=== PATIENT | male | born 1945 | race Caucasian/White ===

== ENCOUNTER 2016-10-03 09:24 | Outpatient (CLI) | payer MEDICARE, OTHER | END 2016-10-03 09:25 | disposition home or self-care (01) | DX: G47.33 Obstructive sleep apnea (adult) (pediatric) (principal) | CPT/HCPCS: 99214; G0463 ==

== ENCOUNTER 2017-07-25 12:33 | Emergency (ER) | payer MEDICARE, OTHER ==
--- NOTE | 2017-07-25 14:06 | ED Physician Documentation ---
PD HPI URI - Stated complaint Stated Complaint: COUGH,RUNNY NOSE,MUCUS IN EYE - Chief complaint Chief Complaint: Heent - History obtained from History obtained from: Patient - History of Present Illness Timing - onset: Other (4 days of productive cough with mild exertional shortness of breath but no chest pain. No fevers. The cough is worse at night and is productive of green sputum. He is a diabetic.) Review of Systems Constitutional: reports: Fatigue. denies: Fever, Chills Nose: reports: Rhinorrhea / runny nose, Congestion Cardiac: denies: Chest pain / pressure, Palpitations Respiratory: reports: Dyspnea, Cough PD PAST MEDICAL HISTORY - Past Medical History Past Medical History: Yes Cardiovascular: Hypertension, High cholesterol, Coronary artery disease, Murmur Respiratory: Sleep apnea, CPAP use Endocrine/Autoimmune: Type 2 diabetes GI: GERD : None HEENT: Chronic hearing loss Psych: None Musculoskeletal: None Derm: None - Past Surgical History Past Surgical History: Yes HEENT: Tonsil/Adenoidectomy, Other - Present Medications Home Medications: Ambulatory Orders Medication Instructions Recorded Confirmed Aspirin [Aspir 81] 81 mg PO DAILY 08/06/14 07/25/17 Lisinopril [Prinivil] 20 mg PO BID 08/06/14 07/25/17 Atorvastatin [Lipitor] 20 mg PO DAILY 08/07/14 07/25/17 Cholecalciferol (Vitamin D3) 1,000 unit PO DAILY 08/07/14 07/25/17 [Vitamin D3] Cyanocobalamin/Folic Acid [Vitamin 1,000 mg PO DAILY 08/07/14 07/25/17 [id number] Acid Tablet] Nifedipine [Nifedical Xl] 30 mg PO DAILY 08/07/14 07/25/17 Amlodipine Besylate 10 mg PO DAILY 07/25/17 07/25/17 Areds 2 tab ORAL BID 07/25/17 Doxycycline Hyclate 100 mg PO BID #14 tablet 07/25/17 Tamsulosin HCl [Flomax] 0.4 mg PO QPM 07/25/17 07/25/17 - Allergies Allergies/Adverse Reactions: Allergies Allergy/AdvReac Type Severity Reaction Status Date / Time shellfish derived Allergy Rash Verified 07/25/17 12:44 - Social History Does the pt smoke?: No Smoking Status: Never smoker Does the pt drink ETOH?: No Does the pt have substance abuse?: No - Immunizations Immunizations are current?: Yes PD ED PE NORMAL - Vitals Vital signs reviewed: Yes - General General: Alert and oriented X 3, No acute distress - HEENT HEENT: PERRL, EOMI, Other (Mild bilateral conjunctivitis, right otitis media but he has a genetic condition and I am not sure how acute that is.) - Neck Neck: Supple, no meningeal sign, No bony TTP - Cardiac Cardiac: RRR, No murmur - Respiratory Respiratory: No respiratory distress, Clear bilaterally - Neuro Neuro: Alert and oriented X 3, Normal speech Results - Vitals Vitals: Vital Signs - 24 hr 07/25/17 12:41 Temperature 36.5 C Heart Rate 70 Respiratory 18 Rate Blood Pressure 138/67 H O2 Saturation 99 Oxygen O2 Source Room air Departure - Departure Disposition: Home, Self Care Clinical Impression: Bronchitis ROM (right otitis media) Qualifiers: Otitis media type: suppurative Chronicity: unspecified Qualified Code(s): H66.41 - Suppurative otitis media, unspecified, right ear DM II (diabetes mellitus, type II), controlled Qualifiers: Diabetes mellitus complication status: without complication 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 In the interim, return anytime if worse or if new symptoms develop. Your blood pressure was elevated today on check into the emergency department. This does not mean that you have hypertension, it is a common phenomenon to come to the emergency department and have elevated blood pressure. I recommend that you see your primary care physician within the week to have it rechecked when you are feeling better.
[2017-07-25 14:45] VITALS: BP 134/74
== END 2017-07-25 14:15 | disposition home or self-care (01) ==
LOC: ED 12:33
DX: J40 Bronchitis, not specified as acute or chronic (principal); H66.41 Suppurative otitis media, unspecified, right ear; H10.9 Unspecified conjunctivitis; I10 Essential (primary) hypertension; E11.9 Type 2 diabetes mellitus without complications; E78.00 Pure hypercholesterolemia, unspecified; I25.10 Atherosclerotic heart disease of native coronary artery without angina pectoris; G47.30 Sleep apnea, unspecified; K21.9 Gastro-esophageal reflux disease without esophagitis; Z79.82 Long term (current) use of aspirin
CPT/HCPCS: 99283

== ENCOUNTER 2018-07-17 10:14 | Outpatient (CLI) | payer MEDICARE, OTHER ==
--- NOTE | 2018-07-17 15:53 | XRAY Report ---
Reason: CHEST PAIN Procedure Date: 07/17/2018 Accession Number: [id number] / [id number] Procedure: XRN - Chest 2 View X-Ray CPT Code: 27185 FULL RESULT: EXAM: CHEST RADIOGRAPHY EXAM DATE: 07/17/2018 11:25 AM. CLINICAL HISTORY: CHEST PAIN. COMPARISON: None. TECHNIQUE: 2 views. FINDINGS: Lungs/Pleura: No focal opacities evident. No pleural effusion. No pneumothorax. Normal volumes. Mediastinum: Heart and mediastinal contours are unremarkable. IMPRESSION: No evidence of acute thoracic process RADIA
== END 2018-07-17 10:15 | disposition home or self-care (01) ==
LOC: DI.N 10:14
PROVIDERS: ATTEND Family Medicine
DX: R07.9 Chest pain, unspecified (principal)
CPT/HCPCS: 71046

== ENCOUNTER 2019-03-14 08:00 | Outpatient (CLI) | payer MEDICARE, OTHER ==
[2019-03-14 18:55] LABS: BASOPHILS % (AUTO) 0.3 %; EOSINOPHILS % (AUTO) 0.3 %; HGB - HEMOGLOBIN 12.9 g/dL (14.0-18.0); LYMPHOCYTES # (AUTO) 1.1 10^3/uL (1.5-3.5); LYMPHOCYTES % (AUTO) 17.9 %; MEAN CORPUSCULAR HEMOGLOBIN 33.4 pg (27.0-31.0); MEAN CORPUSCULAR HGB CONC 33.7 g/dL (32.0-36.0); MEAN CORPUSCULAR VOLUME 99.2 fL (80.0-94.0); MONOCYTES # (AUTO) 0.6 10^3/uL (0.0-1.0); MONOCYTES % (AUTO) 10.5 %; NEUTROPHILS # (AUTO) 4.3 10^3/uL (1.5-6.6); PLT - PLATELET COUNT 178 10^3/uL (130-450); RED BLOOD COUNT 3.86 10^6/uL (4.70-6.10); RED CELL DISTRIBUTION WIDTH 13.1 % (12.0-15.0); WHITE BLOOD COUNT 6.1 x10^3/uL (4.8-10.8)
[2019-03-14 19:14] LABS: ALBUMIN 4.7 g/dL (3.2-5.5); ALKALINE PHOSPHATASE 80 IU/L (42-121); ALT ALANINE AMINOTRANSFERASE 31 IU/L (10-60); AST ASPARTATE AMINOTRANSFERASE 21 IU/L (10-42); BILIRUBIN,DIRECT < 0.1 mg/dL (0.1-0.5); BILIRUBIN,TOTAL 0.7 mg/dL (0.2-1.0); TOTAL PROTEIN 7.1 g/dL (6.7-8.2)
== END 2019-03-14 23:59 | disposition home or self-care (01) ==
LOC: LAB.WCP 08:00
PROVIDERS: ATTEND Physician Assistant Medical
DX: B35.1 Tinea unguium (principal); Z79.899 Other long term (current) drug therapy
CPT/HCPCS: 36415; 80076; 85025

== ENCOUNTER 2019-04-24 11:38 | Outpatient (CLI) | payer MEDICARE, OTHER ==
[2019-04-24 19:03] LABS: ALBUMIN 4.8 g/dL (3.2-5.5); BILIRUBIN,DIRECT 0.1 mg/dL (0.1-0.5); BILIRUBIN,TOTAL 0.5 mg/dL (0.2-1.0); TOTAL PROTEIN 7.7 g/dL (6.7-8.2)
== END 2019-04-24 23:59 ==
LOC: LAB.WCP 11:38
PROVIDERS: ATTEND Physician Assistant Medical
DX: B35.1 Tinea unguium (principal); Z79.899 Other long term (current) drug therapy
CPT/HCPCS: 36415; 80076

== ENCOUNTER → 2019-06-21 | Outpatient (CLI) | payer MEDICARE, OTHER | LOC: LAB.WCP 08:00 | PROVIDERS: ATTEND Urology | DX: Z12.5 Encounter for screening for malignant neoplasm of prostate (principal) | CPT/HCPCS: 36415; G0103; 84153 ==

== ENCOUNTER 2019-08-06 15:30 | Outpatient (CLI) | payer MEDICARE, OTHER ==
[2019-08-06 17:25] VITALS: BP 140/56
--- NOTE | 2019-08-06 17:25 | SLEEP CARE CONSULTATION ---
Information from patient questionnaire entered by Rosemarie Parr. I have reviewed and concur with the information entered by Rosemarie Parr. This document represents the service I personally performed and the decisions made by me, Bethanie Retana, RN, MSN, GRAIN I FARMWORKER. History of Present Illness Previous diagnosis: Moderate, Obstructive Sleep Apnea-Hypopnea Syndrome AHI: 25.4 Reason for follow up: annual Equipment type: CPAP Equipment obtained from: [facility] (having difficulty getting supplies) Mask style: Nasal Mask brand: Respironics Backup mask available: No (keep current mask when replaced) Last cushion change: a few months ago Prior sleep studies: Yes Year and Where: [facility] CPAP Compliance Data - Data Reviewed with Patient Average duration of nightly device use: 8h 48m Compliance rate %: 96.7 Current pressure setting (cmH2O): 10-15 Humidity setting: varied Average residual AHI: 2 Average large leak: 1m 54s Subjective Missed days of use due to: reports: other (use of travel CPAP on boat) Patient concerns: reports: condensation in mask/hose (rare ), nasal congestion (seasonal - uses the humidity to reduce symptoms - wants to use a full face mask when unable to use nasal mask), dry mouth, nose, throat (dry mouth- several times a week. ). denies: aerophagia, mask discomfort, air blowing in eyes, mask leak noise, epistaxis Observed to snore while using device: No Current pressure setting perceived as: comfortable On therapy, patient: reports: sleeping better (cannot sleep without CPAP ), awakening more refreshed, being more awake and alert during the day, more rested overall. denies: drowsiness while driving Initial [place] Sleepiness Scale score: 7 Current [place] Sleepiness Scale score: 5 Allergies and Home Medications Known drug allergies: No Home medication list reviewed: Yes (see changes ) Allergy and home medication list: tamsulosin 0.4 mg HS nifedipine 30mg daily lisinopril 20mg bid Vitamin B12 / folic acid daily Vitamin D3 daily atorvastatin 20mg daily aspirin 81mg daily Areds 2 bid amlodipine 10mg daily metformin 500mg TID furosemide 20mg daily Review of Systems Review of systems same as previous: No (BAHA hearing appliance to right occipital scalp. ) Physical Exam Blood Pressure: 140/56 Cuff size: long Heart Rate: 87 O2 Saturation: 98 Height: 6 ft Weight: 198 lb 12.8 oz Body Mass Index: 26.9 BMI Classification: Overweight Impression and Plan 1. Obstructive Sleep Apnea-Hypopnea Syndrome, moderate, with good treatment compliance and good apnea control. On CPAP therapy, the patient has better sleep quality and is more rested overall. For patient supply concerns. Patient was notified that another DME can be used. I will have my trauma coordinator inform of DME options. A DWO prescription will then be made. Patient advised to contact this office if further supply problems. Since his CPAP is over 5 years old and of reasonable use, I will also update his CPAP. Compliance guidelines discussed for follow up. He travels frequently and wants to ensure it does not stop functioning as he does not sleep well without CPAP. At the time of transfer, he is advised to bring his mask as he wants to continue its use. He is also considering getting a full face mask to use when he congested with allergies. I discussed how he can alternate style of mask when due for replacement. For dry mouth, just adjust humidity higher setting. I informed him that the new CPAPs have a better humidity system. He is planning on losing 5-10 pounds. His current pressure range should accommodate this loss. Symptoms to reports discussed for CPAP pressure adjustment. Patient's apnea severity and rationale for treatment to reduce apnea, improve sleep quality and reduce cardiovascular and cerebrovascular events was reviewed. I also reviewed the benefit of consistent device use of CPAP for hypertension, diabetes. * Continue CPAP pressure at 10-15 cmH2O * Update CPAP - Dreamstation preferred by patient * Full face mask fitting to use when allergic rhinitis * Notify me if snoring with mask or feeling that the pressure is too much or too little * Attempt to lose some weight * Call this office if any problems using CPAP * Return for follow up in 1 month after new device , or sooner if concerns arise Time Spent with Patient (minutes): 35 I spent 100% of this visit face to face with the patient with greater than 50% of this was spent time counseling the patient and coordination of care.
== END 2019-08-06 15:31 ==
LOC: SC 15:30
PROVIDERS: ATTEND Nurse Practitioner Family
DX: G47.33 Obstructive sleep apnea (adult) (pediatric) (principal)
CPT/HCPCS: 99214; G0463; 99212

== ENCOUNTER 2019-10-17 13:45 | Outpatient (CLI) | payer MEDICARE, OTHER ==
--- NOTE | 2019-10-17 13:26 | SLEEP CARE CONSULTATION ---
Information from patient questionnaire entered by Rosemarie Parr. I have reviewed and concur with the information entered by Rosemarie Parr. This document represents the service I personally performed and the decisions made by me, Bethanie Retana, RN, MSN, ROVING DEPARTMENT END FINDER. History of Present Illness Service Date and Time: 10/17/2019 1300 Previous diagnosis: Moderate, Obstructive Sleep Apnea-Hypopnea Syndrome AHI: 25.4 Reason for follow up: first compliance after device update Equipment type: CPAP Equipment obtained from: [employer] (getting supplies as needed) Mask style: Nasal pillows Backup mask available: No (keep current mask when replaced) Last cushion change: a few days CPAP Compliance Data - Data Reviewed with Patient Average duration of nightly device use: 7h 16m Compliance rate %: 100 Current pressure setting (cmH2O): 10-15 Average residual AHI: 1.5 Average large leak: 8m 6s Subjective Patient concerns: reports: nasal congestion (reduced with CPAP), dry mouth, nose, throat (dry mouth mild-), other (notices mask leaks on machine). denies: aerophagia, mask discomfort, air blowing in eyes, mask leak noise, condensation in mask/hose, epistaxis Observed to snore while using device: No Current pressure setting perceived as: comfortable On therapy, patient: reports: sleeping better, awakening more refreshed, being more awake and alert during the day, more rested overall. denies: drowsiness while driving Initial [place] Sleepiness Scale score: 7 Physical Exam Height: 6 ft Impression and Plan 1. Obstructive Sleep Apnea-Hypopnea Syndrome, moderate , with good treatment compliance and good apnea control with his updated CPAP. On CPAP therapy, the patient has better sleep quality and is more rested overall. To reduce mask leaks when he sleeps on his side, he is advised to consider a CPAP pillow with rationale explained. CPAP pillows can be found online. To reduce mild oral dryness, he is advised of oral rinses and xylimelts to reduce dryness symptoms. He is advised to contact his dentist of best product to use for him to reduce dental carries associated with oral dryness. He is currently living insolation on his [place] using the CPAP battery to reduce exposure to the Yao Virus. The humidifier cannot be used with the CPAP battery as it draws too much power. Otherwise, he could increase the humidity for his oral dryness. Patient's apnea severity and rationale for treatment to reduce apnea, improve sleep quality and reduce cardiovascular and cerebrovascular events was reviewed. * Continue autoCPAP pressure at 10-15 cmH2O * Consider CPAP pillow * Contact dentist re oral dryness products * Notify me if snoring with mask or feeling that the pressure is too much or too little * Call this office if any problems using CPAP * Return for follow up in 1 year , or sooner if concerns arise Counseling Topics: Spare mask Visit Type: Telehealth Phone (to minimize risk of COVID 19 risk, the patient has agreed to a telehealth visit and billing of his insurance.) Patient agrees and consents to this telehealth visit type: Yes Time Spent with Patient (minutes): 10 Provider Statement: I spent 100% of the Telehealth Phone Call with the patient with greater than 50% spent counseling the patient and coordination of care.
== END 2019-10-17 13:46 | disposition home or self-care (01) ==
LOC: SC 13:45
PROVIDERS: ATTEND Nurse Practitioner Family
DX: G47.33 Obstructive sleep apnea (adult) (pediatric) (principal)

== ENCOUNTER 2020-10-21 11:15 | Outpatient (CLI) | payer MEDICARE, OTHER ==
--- NOTE | 2020-10-21 11:55 | SLEEP CARE CONSULTATION ---
Information from patient questionnaire entered by Christa Plasencia. I have reviewed and concur with the information entered by Christa Plasencia. This document represents the service I personally performed and the decisions made by , Sosa Hoover ARNP. History of Present Illness Service Date and Time: 10/21/2020 1115 Previous diagnosis: Moderate, Obstructive Sleep Apnea-Hypopnea Syndrome AHI: 25.4 (in 2008) Reason for follow up: annual (Last seen 10/2019) Equipment type: CPAP Equipment obtained from: [facility] (getting supplies as needed) Mask style: Nasal (over the nose) Backup mask available: Yes (old mask) Last cushion change: not sure, changes when leaks Prior sleep studies: Yes Year and Where: [address] [place] [address] Sleep HPI additional information: NATHAN ESPARZA was diagnosed to have moderate, AHI 25.4, obstructive sleep apnea-hypopnea syndrome and returned today for CPAP therapy annual follow-up. CPAP Compliance Data - Data Reviewed with Patient Average duration of nightly device use: 6 hr 29 min Compliance rate %: 76.7 (150 days) Current pressure setting (cmH2O): 10-15 Humidity settin Heated hose settin Average residual AHI: 2.3 Average large leak: 4 sec Subjective Missed days of use due to: reports: other (uses old machine on his boat) Patient concerns: reports: dry mouth, nose, throat (a little daily, drinks water to wet mouth). denies: aerophagia, mask discomfort, air blowing in eyes, mask leak noise, condensation in mask/hose, nasal congestion, epistaxis, other Observed to snore while using device: No Current pressure setting perceived as: comfortable On therapy, patient: reports: sleeping better, awakening more refreshed, being more awake and alert during the day, more rested overall. denies: drowsiness while driving Initial [place] Sleepiness Scale score: 7 (in 2010) Current [place] Sleepiness Scale score: 6 Allergies and Home Medications Home medication list reviewed: Yes (no new meds) Review of Systems Review of systems same as previous: Yes (no changes) Physical Exam Heart Rate: 70 O2 Saturation: 99 Height: 6 ft Weight: 193 lb Body Mass Index: 26.2 BMI Classification: Overweight Impression and Plan 1. Obstructive Sleep Apnea-Hypopnea Syndrome, moderate, with good treatment compliance and good apnea control. On CPAP therapy, the patient has better sleep quality and is more rested overall. He has significant improvement of his sleep apnea and is satisfied with his treatment. He has an old machine that he uses when on his boat that uses a credit card style data disc which we cannot read. He does have daily mouth dryness but he states he drinks a little water and he is fine. Oral dryness can be reduced by adjusting humidity setting higher or heated hose lower or by adjusting both settings. He voiced understanding. Patient's apnea severity and rationale for treatment to reduce apnea, improve sleep quality and reduce cardiovascular and cerebrovascular events was reviewed. I also reviewed the benefit of consistent device use of CPAP for hypertension and diabetes. * Continue autoCPAP pressure at 10-15 cmH2O * Notify me if snoring with mask or feeling that the pressure is too much or too little * Attempt to lose weight * Call this office if any problems using CPAP * Return for follow up in 1 year, or sooner if concerns arise Counseling Topics: Spare mask, Weight loss health impact Visit Type: In Office Time Spent with Patient (minutes): 17 Provider Statement: I spent 100% of the Face to Face Visit with the patient with greater than 50% spent counseling the patient and coordination of care.
== END 2020-10-21 11:16 | disposition home or self-care (01) ==
LOC: SC 11:15
PROVIDERS: ATTEND Nurse Practitioner Family
DX: G47.33 Obstructive sleep apnea (adult) (pediatric) (principal); E66.3 Overweight; Z68.26 Body mass index [BMI] 26.0-26.9, adult
CPT/HCPCS: 99212; G0463

== ENCOUNTER 2021-05-21 10:05 | Outpatient (CLI) | payer MEDICARE, OTHER ==
[2021-05-21 10:40] VITALS: BP 168/78
--- NOTE | 2021-05-21 10:40 | SLEEP CARE CONSULTATION ---
Information from patient questionnaire entered by Evans Go MA. I have reviewed and concur with the information entered by Evans Go MA. This document represents the service I personally performed and the decisions made by , Sosa Hoover ARNP. History of Present Illness Service Date and Time: 05/21/2021 1005 Previous diagnosis: Moderate, Obstructive Sleep Apnea-Hypopnea Syndrome AHI: 25.4 (in 2008) Reason for follow up: other (7 MONTH F/U TRANSFER DME) Equipment type: CPAP Equipment obtained from: [facility] (getting supplies as needed; not longer doing supplies) Mask style: Nasal (over the nose) Backup mask available: Yes (old mask) Prior sleep studies: Yes Year and Where: [address] [place] [address] Sleep HPI additional information: NATHAN ESPARZA was diagnosed to have moderate, AHI 25.4, obstructive sleep apnea-hypopnea syndrome and returned today for CPAP therapy 7 month follow-up. Sleep Study - Results Prior sleep studies: Yes Year and Where: [address] [place] [address] Sleep CPAP Compliance Data - Data Reviewed with Patient Average duration of nightly device use: 4 HOURS 1 MINUTE Compliance rate %: 57.8 Current pressure setting (cmH2O): 10 -15 Humidity settin Heated hose settin Average residual AHI: 1.6 Average large leak: 7 secs Compliance data discussion: He uses an older device when on his boat. Subjective Missed days of use due to: reports: other (uses other device when on his boat) Patient concerns: denies: aerophagia, mask discomfort, air blowing in eyes, mask leak noise, condensation in mask/hose, nasal congestion, dry mouth, nose, throat, epistaxis, other Observed to snore while using device: No Current pressure setting perceived as: comfortable On therapy, patient: reports: sleeping better, awakening more refreshed, being more awake and alert during the day, more rested overall. denies: drowsiness while driving Initial [place] Sleepiness Scale score: 7 (in 2010) Current [place] Sleepiness Scale score: 7 (in 2020) Allergies and Home Medications Home medication list reviewed: Yes (no changes) Review of Systems Review of systems same as previous: Yes (no changes) Physical Exam Vital signs obtained and entered by: Diomedes Go CMA AAULISES Blood Pressure: 168/78 (left) Cuff size: wrist Heart Rate: 77 O2 Saturation: 98 (with mask) Height: 6 ft Weight: 185 lb (with winter clothes and boots) Body Mass Index: 25.0 BMI Classification: Overweight Impression and Plan 1. Obstructive Sleep Apnea-Hypopnea Syndrome, moderate, with good treatment compliance and good apnea control. On CPAP therapy, the patient has better sleep quality and is more rested overall. Patient uses an old device that uses a credit card memory card that we are unable to read. He uses his CPAP every night. He asked to have the ramp time reduced or turned off on his device because he gets some air hunger when it starts lower and his ramp time is at 30 minutes. He is also concerted that his DME company has sold off the CPAP supply part of their business and he would like to change to a different DME for his supplies. For patient supply concerns another DME can be used. I will have my grant coordinator inform of DME options. A DWO prescription will then be made. Patient advised to contact this office if further supply problems. Patient's apnea severity and rationale for treatment to reduce apnea, improve sleep quality and reduce cardiovascular and cerebrovascular events was reviewed. I also reviewed the benefit of consistent device use of CPAP for hypertension and diabetes. * Continue auto CPAP pressure at 10-15 cmH2O * Transfer DME * Turn off ramp time * Notify me if snoring with mask or feeling that the pressure is too much or too little * Attempt to lose weight * Call this office if any problems using CPAP * Return for follow up in 1 year, or sooner if concerns arise Counseling Topics: Spare mask, Weight loss health impact Visit Type: In Office Time Spent with Patient (minutes): 21 Provider Statement: I spent 100% of the Face to Face Visit with the patient with greater than 50% spent counseling the patient and coordination of care.
== END 2021-05-21 10:06 | disposition home or self-care (01) ==
LOC: SC 10:05
PROVIDERS: ATTEND Nurse Practitioner Family
DX: G47.33 Obstructive sleep apnea (adult) (pediatric) (principal)
CPT/HCPCS: 99213; G0463; 99212

== ENCOUNTER 2022-05-31 09:54 | Outpatient (CLI) | payer MEDICARE, OTHER ==
[2022-05-31 10:39] VITALS: BP 122/58
--- NOTE | 2022-05-31 10:39 | SLEEP CARE CONSULTATION ---
Information from patient questionnaire entered by Jey Duenas. I have reviewed and concur with the information entered by Jey Duenas. This document represents the service I personally performed and the decisions made by me, Sosa Hoover ARNP. History of Present Illness Service Date and Time: 05/31/2022 0954 Previous diagnosis: Moderate, Obstructive Sleep Apnea-Hypopnea Syndrome AHI: 25.4 (in 2008) Reason for follow up: annual (LAST SEEN 05/2021) Equipment type: CPAP (DREAMSTATION 2) Equipment obtained from: Other ([employer]; getting supplies as needed) Mask style: Nasal (over the nose) Backup mask available: No (will keep old mask when replaced) Last cushion change: last month Prior sleep studies: Yes Year and Where: [address] [place] [address] Sleep HPI additional information: NATHAN ESPARZA was diagnosed to have moderate, AHI 25.4, obstructive sleep apnea-hypopnea syndrome and returned today for CPAP therapy annual follow-up. Sleep Study - Results Prior sleep studies: Yes Year and Where: [address] [place] [address] Sleep CPAP Compliance Data - Data Reviewed with Patient Average duration of nightly device use: 7 hours 30 minutes Compliance rate %: 77.2 (141/180 days used) Current pressure setting (cmH2O): 10-15 Average residual AHI: 1.8 Central apnea: 0.1 Obstructive apnea: 1 Compliance data discussion: He uses his CPAP every night and will use an older machine [place]. He uses it for naps too. Subjective Missed days of use due to: reports: other (all gaps in use he is using his older CPAP on his boat) Patient concerns: denies: aerophagia, mask discomfort, air blowing in eyes, mask leak noise, condensation in mask/hose, nasal congestion, dry mouth, nose, throat, epistaxis Observed to snore while using device: No Current pressure setting perceived as: comfortable On therapy, patient: reports: sleeping better, awakening more refreshed, being more awake and alert during the day, more rested overall. denies: drowsiness while driving Initial [place] Sleepiness Scale score: 7 (in 2010) Current [place] Sleepiness Scale score: 4 (05/31/22) Allergies and Home Medications Drug allergies reviewed: Yes (shellfish derived) Home medication list reviewed: Yes Review of Systems Review of systems same as previous: Yes (no changes) Physical Exam Vital signs obtained and entered by: JEY Herrera MA Blood Pressure: 122/58 (LEFT ARM) Cuff size: regular Heart Rate: 68 O2 Saturation: 99 Height: 6 ft Weight: 191 lb 9.6 oz Body Mass Index: 25.9 BMI Classification: Overweight Impression and Plan 1. Obstructive Sleep Apnea-Hypopnea Syndrome, moderate, with good treatment compliance and good apnea control. On CPAP therapy, the patient has better sleep quality and is more rested overall. Patient uses a very old machine when he is on his boat periodically through the year. We are unable to obtain information from the card. He rates his compliance with his main machine at home. Patient has significant improvement of their sleep apnea and are satisfied with current CPAP therapy. Patient denies problems with oral dryness, nasal congestion, epistaxis, skin irritation or aerophagia. Patient's apnea severity and rationale for treatment to reduce apnea, improve sleep quality and reduce cardiovascular and cerebrovascular events was reviewed. I also reviewed the benefit of consistent device use of CPAP for hypertension and diabetes. * Continue auto CPAP pressure at 10-15 cmH2O * Update supplies * Notify me if snoring with mask or feeling that the pressure is too much or too little * Maintain a healthy weight * Call this office if any problems using CPAP * Return for follow up in 1 year, or sooner if concerns arise Counseling Topics: Spare mask, Weight control Visit Type: In Office Time Spent with Patient (minutes): 20 Provider Statement: I spent 100% of the Face to Face Visit with the patient with greater than 50% spent counseling the patient and coordination of care.
== END 2022-05-31 09:55 | disposition home or self-care (01) ==
LOC: SC 09:54
PROVIDERS: ATTEND Nurse Practitioner Family
DX: G47.33 Obstructive sleep apnea (adult) (pediatric) (principal)
CPT/HCPCS: 99213; G0463; 99212

== ENCOUNTER 2023-03-10 07:30 | Outpatient (CLI) | payer MEDICARE, OTHER ==
[2023-03-10 13:00] LABS: BASOPHILS % (AUTO) 0.3 %; EOSINOPHILS # (AUTO) 0.1 10^3/uL (0.0-0.7); EOSINOPHILS % (AUTO) 0.8 %; HGB - HEMOGLOBIN 12.4 g/dL (14.0-18.0); LYMPHOCYTES # (AUTO) 1.4 10^3/uL (1.5-3.5); LYMPHOCYTES % (AUTO) 20.7 %; MEAN CORPUSCULAR HEMOGLOBIN 34.3 pg (27.0-31.0); MEAN CORPUSCULAR HGB CONC 33.5 g/dL (32.0-36.0); MEAN CORPUSCULAR VOLUME 102.2 fL (80.0-94.0); MEAN PLATELET VOLUME 11.1 fL (7.4-11.4); MONOCYTES # (AUTO) 0.6 10^3/uL (0.0-1.0); MONOCYTES % (AUTO) 8.9 %; NEUTROPHILS # (AUTO) 4.5 10^3/uL (1.5-6.6); NEUTROPHILS % (AUTO) 67.9 %; PLT - PLATELET COUNT 178 10^3/uL (130-450); RED BLOOD COUNT 3.62 10^6/uL (4.70-6.10); RED CELL DISTRIBUTION WIDTH 13.1 % (12.0-15.0); WHITE BLOOD COUNT 6.6 x10^3/uL (4.8-10.8)
[2023-03-10 13:04] LABS: ESTIMATED AVERAGE GLUCOSE 120 mg/dL (70-100); HEMOGLOBIN A1c% 5.8 % (4.27-6.07)
[2023-03-10 13:17] LABS: % IRON SATURATION 35 % (20-50); ALBUMIN 4.6 g/dL (3.2-5.5); ALBUMIN/GLOBULIN RATIO 2.4 (1.0-2.2); ALKALINE PHOSPHATASE 71 IU/L (42-121); ALT ALANINE AMINOTRANSFERASE 20 IU/L (10-60); AST ASPARTATE AMINOTRANSFERASE 13 IU/L (10-42); BILIRUBIN,TOTAL 0.6 mg/dL (0.2-1.0); BUN - BLOOD UREA NITROGEN 19 mg/dL (6-20); CALCIUM 9.7 mg/dL (8.5-10.3); CARBON DIOXIDE - CO2 29 mmol/L (21-32); CHLORIDE 106 mmol/L (101-111); CHOL/HDL RATIO 2.1 (<5.0); CHOLESTEROL 95 mg/dL; CREATININE 0.8 mg/dL (0.6-1.3); GFR - MDRD 93 (>89); GLUCOSE 154 mg/dL (74-104); HDL CHOLESTEROL 46 mg/dL; IRON 112 ug/dL (50-212); LDL CHOLESTEROL,CALCULATED 26 mg/dL; LDL/HDL RATIO 0.6 (<3.6); POTASSIUM 4.5 mmol/L (3.5-4.5); SODIUM 141 mmol/L (135-145); TOTAL IRON BINDING CAPACITY 318 ug/dL (250-450); TOTAL PROTEIN 6.5 g/dL (6.4-8.9); TRANSFERRIN 227 mg/dL (203-362); TRIGLYCERIDES 113 mg/dL (48-352); VLDL CHOLESTEROL 23 mg/dL
[2023-03-10 13:32] LABS: CREATININE,URINE 138.5 mg/dL; MICROALBUM/CREATININE RATIO,UR 290.3 ug/mg (<30.0); MICROALBUMIN,URINE 40.2 mg/dL
[2023-03-10 13:38] LABS: FERRITIN 201.3 ng/mL (23.9-336.2)
== END 2023-03-10 07:31 | disposition home or self-care (01) ==
LOC: LAB.N 07:30
PROVIDERS: ATTEND Physician Assistant
DX: E11.9 Type 2 diabetes mellitus without complications (principal); E78.00 Pure hypercholesterolemia, unspecified; D51.9 Vitamin B12 deficiency anemia, unspecified
CPT/HCPCS: 36415; 80053; 80061; 82043; 82570; 82607; 82728; 82746; 83036; 83540; 83721; 84466; 85025

== ENCOUNTER 2023-04-04 09:54 | Outpatient (CLI) | payer MEDICARE, OTHER | END 2023-04-04 09:55 | disposition home or self-care (01) | LOC: LAB.N 09:54 | PROVIDERS: ATTEND Physician Assistant | DX: E67.8 Other specified hyperalimentation (principal) | CPT/HCPCS: 36415; 82607 ==

== ENCOUNTER 2023-05-29 08:45 | Outpatient (CLI) | payer MEDICARE, OTHER ==
[2023-05-29 13:14] LABS: CALCIUM 9.6 mg/dL (8.5-10.3); CREATININE 1.2 mg/dL (0.6-1.3); POTASSIUM 4.5 mmol/L (3.5-4.5)
[2023-05-29 14:21] LABS: ESTIMATED AVERAGE GLUCOSE 140 mg/dL (70-100); HEMOGLOBIN A1c% 6.5 % (4.27-6.07)
== END 2023-05-29 08:46 | disposition home or self-care (01) ==
LOC: LAB.N 08:45
PROVIDERS: ATTEND Physician Assistant
DX: E11.9 Type 2 diabetes mellitus without complications (principal); E67.8 Other specified hyperalimentation
CPT/HCPCS: 36415; 80048; 82607; 83036

== ENCOUNTER 2023-06-01 13:21 | Outpatient (CLI) | payer MEDICARE, OTHER ==
[2023-06-01 17:42] LABS: BILIRUBIN,URINE NEGATIVE (NEGATIVE); GLUCOSE, URINE (UA) 100 mg/dL (NEGATIVE); KETONES,URINE (UA) NEGATIVE (NEGATIVE); LEUKOCYTE ESTERASE, URINE NEGATIVE (NEGATIVE); NITRITE,URINE NEGATIVE (NEGATIVE); OCCULT BLOOD,URINE MODERATE (NEGATIVE); PROTEIN,URINE NEGATIVE (NEGATIVE); UROBILINOGEN,URINE 0.2 (NORMAL) E.U./dL (NORMAL)
[2023-06-01 17:47] LABS: CLARITY,URINE HAZY (CLEAR)
[2023-06-01 17:52] LABS: AMORPHOUS SEDIMENT,UR Few /LPF; BACTERIA,URINE None Seen /HPF (None Seen); RBC,URINE 0-5 /HPF (0-5); SQUAMOUS EPITHELIAL CELL,UR NONE SEEN (<= Few); WBC,URINE 0-3 /HPF (0-3)
[2023-06-01 17:59] LABS: CREATININE,URINE 41.7 mg/dL; MICROALBUM/CREATININE RATIO,UR 263.8 ug/mg (<30.0)
[2023-06-01 18:17] LABS: CALCIUM 9.7 mg/dL (8.5-10.3); CREATININE 0.8 mg/dL (0.6-1.3); POTASSIUM 4.2 mmol/L (3.5-4.5)
== END 2023-06-01 13:22 | disposition home or self-care (01) ==
LOC: LAB.N 13:21
PROVIDERS: ATTEND Physician Assistant
DX: N17.9 Acute kidney failure, unspecified (principal); E11.9 Type 2 diabetes mellitus without complications
CPT/HCPCS: 36415; 80048; 81001; 82043; 82570; 87086

== ENCOUNTER 2023-06-09 15:33 | Outpatient (CLI) | payer MEDICARE, OTHER ==
--- NOTE | 2023-06-09 16:16 | Sleep Patient Instructions ---
Sleep Center Visit Summary - Patient Visit Information Reason for Visit: Annual Visit - Patient Instructions Additional Instructions: You will continue with CPAP therapy with pressure set at 5-15 cmH2O. A supply prescription will be updated with your DME. We encourage you to continue to try to lose weight. Please follow up with the sleep care office in 1 year. - Clinic Information Contact: [facility] [address] [place] [address] [email or web address] T: [phone]
--- NOTE | 2023-06-09 16:22 | SLEEP CARE CONSULTATION ---
Information from patient questionnaire entered by Eli Duenas. I have reviewed and concur with the information entered by Eli Duenas. This document represents the service I personally performed and the decisions made by me, Sosa Hoover ARNP. History of Present Illness Service Date and Time: 06/09/2023 1533 Previous diagnosis: Moderate, Obstructive Sleep Apnea-Hypopnea Syndrome AHI: 25.4 (in 2008) Reason for follow up: annual (LAST SEEN 05/2022) Equipment type: CPAP (DREAMSTATION 2; PT BRINGING MACHINE) Equipment obtained from: Other ([employer]; getting supplies as needed) Mask style: Nasal ([employer] FX, Hannah) Backup mask available: Yes (old mask) Last cushion change: as needed Prior sleep studies: Yes Year and Where: [address] [place] [address] Sleep HPI additional information: NATHAN ESPARZA was diagnosed to have moderate, AHI 25.4, obstructive sleep apnea-hypopnea syndrome and returned today for CPAP therapy annual follow-up. Sleep Study - Results Prior sleep studies: Yes Year and Where: [address] [place] [address] Sleep CPAP Compliance Data - Data Reviewed with Patient Average duration of nightly device use: 7 hours 10 minutes Compliance rate %: 80.8 (307/365 days used) Current pressure setting (cmH2O): 5-15 Average residual AHI: 1.5 Central apnea: 0.1 Obstructive apnea: 0.4 Average large leak: 0 secs Subjective Missed days of use due to: reports: travel (uses an older CPAP when on his boat) Patient concerns: reports: dry mouth, nose, throat (with higher pressure, better now since adjustment). denies: aerophagia, mask discomfort, air blowing in eyes, mask leak noise, condensation in mask/hose, nasal congestion, epistaxis Observed to snore while using device: No Current pressure setting perceived as: comfortable On therapy, patient: reports: sleeping better, awakening more refreshed, being more awake and alert during the day, more rested overall. denies: drowsiness while driving Initial [place] Sleepiness Scale score: 7 (in 2010) Current [place] Sleepiness Scale score: 2 (06/09/23) Allergies and Home Medications Known drug allergies: Yes (as listed) Drug allergies reviewed: Yes Home medication list reviewed: Yes (no changes) Allergy and home medication list: Allergies shellfish derived Allergy (Verified 06/08/23 17:14) Rash Review of Systems Review of systems same as previous: Yes (NO CHANGE) Physical Exam Vital signs obtained and entered by: ELI Herrera MA Blood Pressure: 124/74 (LEFT ARM) Cuff size: regular Heart Rate: 78 O2 Saturation: 98 Height: 6 ft Weight: 183 lb Body Mass Index: 24.8 BMI Classification: Normal Impression and Plan 1. Obstructive Sleep Apnea-Hypopnea Syndrome, moderate, with good treatment compliance and good apnea control. On CPAP therapy, the patient has better sleep quality and is more rested overall. Patient has significant improvement of their sleep apnea and is satisfied with current CPAP therapy. Patient had some dry mouth and he had tried to increase his humidity with no improvement of his oral dryness. This resolved with decrease in pressure. Patient's apnea severity and rationale for treatment to reduce apnea, improve sleep quality and reduce cardiovascular and cerebrovascular events was reviewed. I also reviewed the benefit of consistent device use of CPAP for hypertension and diabetes. * Continue auto CPAP pressure at 5-15 cmH2O * Update supply prescription * Notify me if snoring with mask or feeling that the pressure is too much or too little * Attempt to lose weight * Call this office if any problems using CPAP * Return for follow up in 1 year, or sooner if concerns arise Counseling Topics: Spare mask, Weight loss health impact Prescriptions: Device supplies Follow up with Sleep Care in: 1 year Visit Type: In Office Time Spent with Patient (minutes): 29 Provider Statement: I spent 100% of the Face to Face Visit with the patient with greater than 50% spent counseling the patient and coordination of care.
[2023-06-09 16:24] VITALS: BP 124/74; O2SAT 98
== END 2023-06-09 15:34 | disposition home or self-care (01) ==
LOC: SC 15:33
PROVIDERS: ATTEND Nurse Practitioner Family
DX: G47.33 Obstructive sleep apnea (adult) (pediatric) (principal)
CPT/HCPCS: 99213; G0463; 99212

== ENCOUNTER 2023-08-19 09:31 | Outpatient (CLI) | payer MEDICARE, OTHER ==
[2023-08-19 19:35] LABS: BASOPHILS % (AUTO) 0.3 %; EOSINOPHILS % (AUTO) 0.5 %; HCT - HEMATOCRIT 38.3 % (42.0-52.0); HGB - HEMOGLOBIN 12.7 g/dL (14.0-18.0); LYMPHOCYTES # (AUTO) 1.2 10^3/uL (1.5-3.5); LYMPHOCYTES % (AUTO) 20.1 %; MEAN CORPUSCULAR HEMOGLOBIN 34.1 pg (27.0-31.0); MEAN CORPUSCULAR HGB CONC 33.2 g/dL (32.0-36.0); MONOCYTES # (AUTO) 0.5 10^3/uL (0.0-1.0); MONOCYTES % (AUTO) 7.6 %; NEUTROPHILS # (AUTO) 4.3 10^3/uL (1.5-6.6); NEUTROPHILS % (AUTO) 70.7 %; PLT - PLATELET COUNT 194 10^3/uL (130-450); RED BLOOD COUNT 3.72 10^6/uL (4.70-6.10); RED CELL DISTRIBUTION WIDTH 13.1 % (12.0-15.0); WHITE BLOOD COUNT 6.1 x10^3/uL (4.8-10.8)
[2023-08-19 19:48] LABS: CREATININE,URINE 175.2 mg/dL; MICROALBUM/CREATININE RATIO,UR 93.6 ug/mg (<30.0); MICROALBUMIN,URINE 16.4 mg/dL
[2023-08-19 19:55] LABS: CALCIUM 9.9 mg/dL (8.5-10.3); POTASSIUM 4.1 mmol/L (3.5-4.5)
[2023-08-19 21:27] LABS: ESTIMATED AVERAGE GLUCOSE 137 mg/dL (70-100); HEMOGLOBIN A1c% 6.4 % (4.27-6.07)
== END 2023-08-19 09:32 | disposition home or self-care (01) ==
LOC: LAB.N 09:31
PROVIDERS: ATTEND Physician Assistant
DX: E11.9 Type 2 diabetes mellitus without complications (principal); D64.9 Anemia, unspecified
CPT/HCPCS: 36415; 80048; 82043; 82570; 83036; 85025

== ENCOUNTER 2023-09-08 12:49 | Outpatient (CLI) | payer MEDICARE, OTHER | END 2023-09-08 12:50 | disposition home or self-care (01) | LOC: LAB.N 12:49 | PROVIDERS: ATTEND Physician Assistant | DX: D51.9 Vitamin B12 deficiency anemia, unspecified (principal); Z12.5 Encounter for screening for malignant neoplasm of prostate | CPT/HCPCS: 36415; 82607; G0103; 84153 ==

== ENCOUNTER 2024-01-12 12:41 | Outpatient (CLI) | payer MEDICARE, OTHER | END 2024-01-12 12:42 | disposition home or self-care (01) | LOC: LAB.N 12:41 | PROVIDERS: ATTEND Family Medicine | DX: E11.65 Type 2 diabetes mellitus with hyperglycemia (principal) | CPT/HCPCS: 36415; 82607 ==